=== PATIENT | male | born 1955 | race Caucasian/White ===

== ENCOUNTER 2021-03-21 18:35 | Observation (INO) | payer MEDICARE ==
[~2021-03-21] VITALS: Ht 188 cm; Wt 90.0 kg
[2021-03-21 19:01] LABS: BASOPHILS ABSOLUTE AUTO 0.03 K/mm3 (0.00-0.23); BASOPHILS PERCENT AUTO 0 % (0-2); EOSINOPHILS ABSOLUTE AUTO 0.01 K/mm3 (0.00-0.68); EOSINOPHILS PERCENT AUTO 0 % (0-6); Hematocrit 36.7 % (37.0-53.0); Hemoglobin 11.6 g/dL (13.5-17.5); IMMATURE GRAN ABSOLUTE AUTO 0.05 K/mm3 (0.00-0.10); IMMATURE GRAN PERCENT AUTO 1 % (0-1); LYMPHOCYTES ABSOLUTE AUTO 0.63 K/mm3 (0.84-5.20); LYMPHOCYTES PERCENT AUTO 6 % (21-46); MONOCYTES ABSOLUTE AUTO 0.82 K/mm3 (0.16-1.47); MONOCYTES PERCENT AUTO 8 % (4-13); Mean Corpuscular HGB 26.2 pg (26.0-34.0); Mean Corpuscular HGB Conc 31.6 g/dL (31.5-36.5); Mean Corpuscular Volume 83 fL (80-100); Mean Platelet Volume 9.4 fL (9.1-12.4); NEUTROPHILS ABSOLUTE AUTO 8.85 K/mm3 (1.96-9.15); NEUTROPHILS PERCENT AUTO 85 % (41-73); Platelet Count 188 K/mm3 (150-400); RDW Coefficient Variation 17.5 % (11.7-14.2); RDW Standard Deviation 53.1 fL (35.1-46.3); Red Blood Cell Count 4.42 M/mm3 (4.30-5.90); White Blood Cell Count 10.39 K/mm3 (4.00-11.30)
[2021-03-21 19:25] LABS: Alanine Aminotransfer (ALT/SGP 16 U/L (12-78); Albumin, Blood 2.7 g/dL (3.4-5.0); Albumin/Globulin Ratio 0.5 (0.8-1.8); Alk Phos 517 U/L (50-136); Anion Gap 11 mmol/L (6-16); Aspartate Aminotrans (AST/SGOT 30 U/L (12-37); Bilirubin, Total 1.6 mg/dL (0.1-1.0); Blood Urea Nitrogen 22 mg/dL (8-24); Bun/Creatinine Ratio 25.5 (12.0-20.0); CO2, Blood 24 mmol/L (21-32); Calcium, Blood 9.3 mg/dL (8.5-10.1); Chloride, Blood 99 mmol/L (98-108); Creatinine, Blood 0.86 mg/dL (0.60-1.20); Globulin, Blood 5.2 g/dL (2.2-4.0); Glomerular Filtration Rate >60 (60-); Glucose, Blood 142 mg/dL (70-99); Potassium, Blood 3.8 mmol/L (3.5-5.5); Sodium, Blood 134 mmol/L (136-145); Total Protein, Blood 7.9 g/dL (6.4-8.2)
[2021-03-21] MEDS ORDERED: METO25 PO (21:34)
[2021-03-21] MEDS ORDERED: ATOR40TA PO (21:34)
[2021-03-21] MEDS ORDERED: METF500 PO (21:34)
[2021-03-21] MEDS ORDERED: CHLO25B PO (21:35)
[2021-03-21] MEDS ORDERED: AMLO10 PO (21:35)
[2021-03-21] MEDS ORDERED: LISI20 PO (21:36)
[2021-03-21] MEDS ORDERED: GLIP10 PO (21:36)
[2021-03-21] MEDS ORDERED: WARF4 PO (21:37)
[2021-03-21] MEDS ORDERED: WARF6 PO (21:38)
[2021-03-21] MEDS ORDERED: Saw Palmetto160 MG PO (21:38)
[2021-03-21] MEDS ORDERED: OMEP20ER PO (21:38)
[2021-03-21] MEDS ORDERED: MINOCYCLINE HC100 M2 PO (21:39)
[2021-03-21] MEDS ORDERED: MAGNESIUM OXID400 M1 PO (21:39)
[2021-03-22 00:31] LABS: International Normalized Ratio 2.03; Prothrombin Time Results 21.1 Sec (9.7-11.5)
[2021-03-22 04:10] LABS: BASOPHILS ABSOLUTE AUTO 0.03 K/mm3 (0.00-0.23); BASOPHILS PERCENT AUTO 0 % (0-2); EOSINOPHILS ABSOLUTE AUTO 0.02 K/mm3 (0.00-0.68); EOSINOPHILS PERCENT AUTO 0 % (0-6); Hematocrit 35.1 % (37.0-53.0); Hemoglobin 11.2 g/dL (13.5-17.5); IMMATURE GRAN ABSOLUTE AUTO 0.07 K/mm3 (0.00-0.10); IMMATURE GRAN PERCENT AUTO 1 % (0-1); LYMPHOCYTES ABSOLUTE AUTO 0.62 K/mm3 (0.84-5.20); LYMPHOCYTES PERCENT AUTO 6 % (21-46); MONOCYTES ABSOLUTE AUTO 0.99 K/mm3 (0.16-1.47); MONOCYTES PERCENT AUTO 9 % (4-13); Mean Corpuscular HGB 26.1 pg (26.0-34.0); Mean Corpuscular HGB Conc 31.9 g/dL (31.5-36.5); Mean Corpuscular Volume 82 fL (80-100); Mean Platelet Volume 9.7 fL (9.1-12.4); NEUTROPHILS ABSOLUTE AUTO 9.13 K/mm3 (1.96-9.15); NEUTROPHILS PERCENT AUTO 84 % (41-73); Platelet Count 159 K/mm3 (150-400); RDW Coefficient Variation 17.6 % (11.7-14.2); RDW Standard Deviation 52.7 fL (35.1-46.3); Red Blood Cell Count 4.29 M/mm3 (4.30-5.90); White Blood Cell Count 10.86 K/mm3 (4.00-11.30)
[2021-03-22 04:25] LABS: International Normalized Ratio 2.12; Prothrombin Time Results 21.9 Sec (9.7-11.5)
[2021-03-22 04:32] LABS: Alanine Aminotransfer (ALT/SGP 14 U/L (12-78); Albumin, Blood 2.5 g/dL (3.4-5.0); Albumin/Globulin Ratio 0.6 (0.8-1.8); Alk Phos 450 U/L (50-136); Anion Gap 8 mmol/L (6-16); Aspartate Aminotrans (AST/SGOT 20 U/L (12-37); Bilirubin, Total 1.3 mg/dL (0.1-1.0); Blood Urea Nitrogen 18 mg/dL (8-24); Bun/Creatinine Ratio 22.3 (12.0-20.0); CO2, Blood 28 mmol/L (21-32); Calcium, Blood 8.9 mg/dL (8.5-10.1); Chloride, Blood 99 mmol/L (98-108); Creatinine, Blood 0.81 mg/dL (0.60-1.20); Globulin, Blood 4.5 g/dL (2.2-4.0); Glomerular Filtration Rate >60 (60-); Glucose, Blood 139 mg/dL (70-99); Potassium, Blood 3.5 mmol/L (3.5-5.5); Sodium, Blood 135 mmol/L (136-145)
--- NOTE | 2021-03-22 05:16 | NUR ---
SHIFT SUMMARY NEW ADMIT THIS SHIFT. AAOX4. NPO. DISCOMFORT CONTROLLED WITH 50mcg FENTANYL X1 THIS AM. NO NAUSEA/EMESIS. ORIENTED TO ROOM + CALL LIGHT USE. RESTING WELL SINCE ADMISSION TO FLOOR. HEPARIN GTT TO START WHEN INR IS LESS THEN 2, PHARMACY MANAGING. AT BEDSIDE. PT CURRENTLY RESTING WELL IN BED WITH CALL LIGHT IN REACH.
--- NOTE | 2021-03-22 17:03 | NUR ---
SHIFT SUMMARY AA0X4. PT HAS PASSED GAS AND HAD LARGE BM TODAY. REPORTS RUQ PAIN THAT HAS IMPROVED SLIGHTLY DURING SHIFT. MEDICATED PER EMAR. PT ABLE TO AMBULATE INDEPENDTLY IN BATHROOM. PT HAS TOLERATED SMALL AMOUNT OF PO INTAKE PER MD DIRECTION. CLEAR LIQUIDS. PLAN IS FOR NPO AT MIDNIGHT AND POSSIBLE SURGERY TOMORROW.
--- NOTE | 2021-03-23 04:15 | NUR ---
SHIFT SUMMARY PT RESTING WELL THIS NOC SHIFT. AAOX4. NPO SINCE MIDNIGHT. 50mcg FENTANYL X1 YESTARDAY EVENING. NO NAUSEA/EMESIS. INDEPEDENT IN ROOM. AWAITING LAB RESULTS THIS AM. NO ACUTE CHANGES OVER NIGHT.
[2021-03-23 04:47] LABS: International Normalized Ratio 2.79; Prothrombin Time Results 28.4 Sec (9.7-11.5)
[2021-03-23 09:04] LABS: Alanine Aminotransfer (ALT/SGP 11 U/L (12-78); Albumin, Blood 2.1 g/dL (3.4-5.0); Albumin/Globulin Ratio 0.4 (0.8-1.8); Alk Phos 448 U/L (50-136); Anion Gap 8 mmol/L (6-16); Aspartate Aminotrans (AST/SGOT 26 U/L (12-37); Bilirubin, Total 1.5 mg/dL (0.1-1.0); Blood Urea Nitrogen 14 mg/dL (8-24); Bun/Creatinine Ratio 16.2 (12.0-20.0); CO2, Blood 29 mmol/L (21-32); Calcium, Blood 8.8 mg/dL (8.5-10.1); Chloride, Blood 100 mmol/L (98-108); Creatinine, Blood 0.86 mg/dL (0.60-1.20); Globulin, Blood 4.7 g/dL (2.2-4.0); Glomerular Filtration Rate >60 (60-); Glucose, Blood 72 mg/dL (70-99); Potassium, Blood 3.5 mmol/L (3.5-5.5); Sodium, Blood 137 mmol/L (136-145); Total Protein, Blood 6.8 g/dL (6.4-8.2)
[2021-03-23] MEDS ORDERED: OXAYDO5 M1 PO (16:21)
--- NOTE | 2021-03-23 18:11 | NUR ---
DISCHARGE: PT [place] FULL LIQ DIET FOR LUNCH AND REG DIET AT 1330. DR. CHAMPION NOIFIED OF THIS AND DISCHARGE ORDERS PLACED. PACKET PRINTED AND PT EDUCATED. GIVEN SCRIPT FOR PAIN MEDICATION, MEDICAL RELEASE OF INFORMATION SENT TO MED RECORDS PER PT REQUEST. IV DC'D WNL. PT LEFT UNIT AT ABOUT 1610 ON FOOT WITH . DENIED NEED FOR WHEELCHAIR
== END 2021-03-23 16:53 | disposition home or self-care (01) ==
LOC: ER 18:35 → SURS 18:36
PROVIDERS: Internal Medicine; Physician Assistant; ADMIT Internal Medicine
DX: K80.00 Calculus of gallbladder with acute cholecystitis without obstruction (principal); C78.00 Secondary malignant neoplasm of unspecified lung; C78.7 Secondary malignant neoplasm of liver and intrahepatic bile duct; R59.0 Localized enlarged lymph nodes; K43.2 Incisional hernia without obstruction or gangrene; E11.9 Type 2 diabetes mellitus without complications; I10 Essential (primary) hypertension; E78.5 Hyperlipidemia, unspecified; I25.10 Atherosclerotic heart disease of native coronary artery without angina pectoris; I25.2 Old myocardial infarction; Z85.038 Personal history of other malignant neoplasm of large intestine; Z90.89 Acquired absence of other organs; Z90.49 Acquired absence of other specified parts of digestive tract; Z86.718 Personal history of other venous thrombosis and embolism; Z95.1 Presence of aortocoronary bypass graft; Z86.711 Personal history of pulmonary embolism; Z79.84 Long term (current) use of oral hypoglycemic drugs; Z79.01 Long term (current) use of anticoagulants; Z88.0 Allergy status to penicillin
CPT/HCPCS: 36415; 74018; 74177; 80053; 85025; 85610; 85730; 96374; 96375; 96376; 99285-25; A9270; G0378; J0696; J1170; J3010; J3430; J7030; Q9967